=== PATIENT | male | born 1950 | race Caucasian/White ===

== ENCOUNTER 2024-11-23 10:58 | Outpatient (OUT) | payer OTHER, SELFPAY ==
[2024-11-23 11:48] LABS: Basophils Percent Auto 0.3 % (0.2-2.0); Eosinophils Absolute Auto 0.1 10^3/uL (0.0-0.7); Eosinophils Percent Auto 2.4 % (0.9-7.0); Hemoglobin 16.2 g/dL (14.0-18.0); Immature Granulocytes Abs Auto 0.02 10^3/uL (0.00-0.03); Immature Granulocytes Pct Auto 0.3 % (0.0-0.5); Lymphocytes Absolute Auto 1.3 10^3/uL (1.2-3.8); Lymphocytes Percent Auto 21.7 % (20.5-60.0); Mean Corpuscular HGB Conc 32.4 g/dL (29.9-35.2); Mean Corpuscular Hemoglobin 30.2 pg (25.9-34.0); Mean Corpuscular Volume 93.3 fL (80.0-94.0); Mean Platelet Volume 10.6 fL (9.5-13.5); Monocytes Absolute Auto 0.5 10^3/uL (0.3-0.8); Monocytes Percent Auto 7.6 % (1.7-12.0); Neutrophils Percent Auto 67.7 % (43.0-75.0); Platelet Count 309 10^3/uL (150-450); Red Blood Count 5.36 10^6/uL (4.70-6.10); Red Cell Distribution Width 13.2 % (11.0-15.0)
== END 2024-11-23 10:59 | disposition home or self-care (01) ==
DX: H11.823 Conjunctivochalasis, bilateral (principal)
CPT/HCPCS: 36415; 85025